=== PATIENT | female | born 1955 | race Caucasian/White ===

== ENCOUNTER 2020-09-20 08:32 | Day surgery (SDC) | payer MEDICARE ==
[~2020-09-20 08:32] MED LIST: DIPRIVAN 200 MG/20 ML IV ONE; Ketamine HCl 50 MG/ML ONE
[2020-09-20] MEDS ORDERED: BUPIVACAINE 0.5% VIAL IJ ONE (08:33)
[2020-09-20] MEDS ORDERED: Depo-Medrol 40 MG/ML IM ONE (08:33)
--- NOTE | 2020-09-20 10:55 | XRAY ---
Indication: Bilateral L3-S1 MBB. Intraoperative fluoroscopy was provided for 20 seconds. Single digital spot image submitted for interpretation demonstrates posterior needle tips projecting over the expected left and right L3-S1 nerve roots. Correlate with intraoperative findings/report. Incidental L3-S1 vertebroplasty.
--- NOTE | 2020-09-20 11:48 | XRAY ---
20 seconds fluoroscopy time in surgery for bilateral L3-S1 MBB.
[2020-09-20] MEDS ORDERED: Lactated Ringers 1,000 ML IV ONE (16:48)
== END 2020-09-20 10:25 | disposition home or self-care (01) ==
LOC: SDC 08:32 → SDC-PAIN 08:32
PROVIDERS: ATTEND Psychiatry & Neurology Pain Medicine
DX: M47.816 Spondylosis without myelopathy or radiculopathy, lumbar region (principal); J44.9 Chronic obstructive pulmonary disease, unspecified; I10 Essential (primary) hypertension; E78.5 Hyperlipidemia, unspecified; I25.10 Atherosclerotic heart disease of native coronary artery without angina pectoris; Z79.899 Other long term (current) drug therapy
CPT/HCPCS: 64493; 64494; 72020; 77002; J1030; J2704

== ENCOUNTER 2020-10-25 08:00 | Day surgery (SDC) | payer MEDICARE ==
[2020-10-25] MEDS ORDERED: Depo-Medrol 40 MG/ML IM ONE (08:01)
[2020-10-25] MEDS ORDERED: Xylocaine 1% Vial 30 ML PF IJ ONE ×2 (08:01)
[2020-10-25] MEDS ORDERED: Sensorcaine 0.25% 10 ML IJ ONE (08:01)
[2020-10-25] MEDS ORDERED: BUPIVACAINE 0.5% VIAL IJ ONE (08:01)
[2020-10-25] MEDS ORDERED: DIPRIVAN 200 MG/20 ML IV ONE ×2 (08:16→09:38)
[2020-10-25] MEDS ORDERED: Ketamine HCl 50 MG/ML ONE (08:18)
--- NOTE | 2020-10-25 10:36 | XRAY ---
Indication: Right L3-S1 RFA. Intraoperative fluoroscopy was provided for 1 minute 19 seconds. 3 digital spot images submitted for interpretation demonstrates posterior needle tips projecting over the expected right L3-S1 nerve roots. Correlate with intraoperative findings/report. Incidental L3-S1 vertebroplasty.
--- NOTE | 2020-10-25 10:38 | XRAY ---
1 minute and 19 seconds fluoroscopy time in surgery for right L3-S1 RFA.
[2020-10-25] MEDS ORDERED: Lactated Ringers 1,000 ML IV ONE (16:05)
== END 2020-10-25 10:02 | disposition home or self-care (01) ==
LOC: SDC-PAIN 08:00
PROVIDERS: ATTEND Psychiatry & Neurology Pain Medicine
DX: M47.816 Spondylosis without myelopathy or radiculopathy, lumbar region (principal); I10 Essential (primary) hypertension; J44.9 Chronic obstructive pulmonary disease, unspecified; E78.5 Hyperlipidemia, unspecified; Z86.79 Personal history of other diseases of the circulatory system; F41.9 Anxiety disorder, unspecified; Z79.899 Other long term (current) drug therapy
CPT/HCPCS: 64635; 64636; 72100; 77002; J1030; J2001; J2704

== ENCOUNTER 2020-11-01 07:47 | Day surgery (SDC) | payer MEDICARE ==
[2020-11-01] MEDS ORDERED: BUPIVACAINE 0.5% VIAL IJ ONE (07:48)
[2020-11-01] MEDS ORDERED: Xylocaine 1% Vial 30 ML PF IJ ONE (07:48)
[2020-11-01] MEDS ORDERED: Depo-Medrol 40 MG/ML IM ONE (07:48)
[2020-11-01] MEDS ORDERED: DIPRIVAN 200 MG/20 ML IV ONE (07:52)
[2020-11-01] MEDS ORDERED: Ketamine HCl 50 MG/ML ONE (07:52)
--- NOTE | 2020-11-01 10:54 | XRAY ---
51 seconds fluoroscopy time in surgery for left L3-S1 RFA.
--- NOTE | 2020-11-01 11:04 | XRAY ---
Indication: Left L3-S1 RFA. Intraoperative fluoroscopy was provided for 51 seconds. 4 digital spot images submitted for interpretation demonstrates posterior needle tips projecting over the expected left L3-S1 nerve roots. Correlate with intraoperative findings/report. Incidental L3-S1 vertebroplasty.
[2020-11-01] MEDS ORDERED: Lactated Ringers 1,000 ML IV ONE (15:28)
== END 2020-11-01 10:02 | disposition home or self-care (01) ==
LOC: SDC-PAIN 07:47
PROVIDERS: ATTEND Psychiatry & Neurology Pain Medicine
DX: M47.816 Spondylosis without myelopathy or radiculopathy, lumbar region (principal); Z79.899 Other long term (current) drug therapy; J44.9 Chronic obstructive pulmonary disease, unspecified; I10 Essential (primary) hypertension; E78.5 Hyperlipidemia, unspecified; I25.10 Atherosclerotic heart disease of native coronary artery without angina pectoris; F41.9 Anxiety disorder, unspecified
CPT/HCPCS: 64635; 64636; 72100; 77002; J1030; J2001; J2704

== ENCOUNTER 2020-12-20 09:34 | Day surgery (SDC) | payer MEDICARE ==
[2020-12-20] MEDS ORDERED: Decadron 4 MG INJ IV ONE (09:35)
[2020-12-20] MEDS ORDERED: Xylocaine 1% Vial 30 ML PF IJ ONE (09:35)
[2020-12-20] MEDS ORDERED: BUPIVACAINE 0.5% VIAL IJ ONE (09:35)
[2020-12-20] MEDS ORDERED: Depo-Medrol 40 MG/ML IM ONE (09:35)
[2020-12-20] MEDS ORDERED: Ketamine HCl 50 MG/ML ONE (11:15)
[2020-12-20] MEDS ORDERED: DIPRIVAN 200 MG/20 ML IV ONE (11:15)
--- NOTE | 2020-12-20 12:24 | XRAY ---
Indication: Right SI joint and piriformis injection. Intraoperative fluoroscopy was provided for 1 minute 8 seconds. 5 digital spot images submitted for interpretation demonstrates posterior needle tip projecting over the inferior right SI joint. Second needle tip projects over the expected right piriformis muscle with small amount of contrast injected for needle tip placement. Correlate with intraoperative findings/report. Incidental partially visualized L5 vertebroplasty.
--- NOTE | 2020-12-20 12:28 | XRAY ---
1 minute 8 second of fluoroscopy was used in surgery for a right SI joint and right piriformis injection.
[2020-12-20] MEDS ORDERED: Lactated Ringers 1,000 ML IV ONE (15:54)
== END 2020-12-20 11:47 | disposition home or self-care (01) ==
LOC: SDC-PAIN 09:34
PROVIDERS: ATTEND Psychiatry & Neurology Pain Medicine
DX: M46.1 Sacroiliitis, not elsewhere classified (principal); M79.18 Myalgia, other site; M60.9 Myositis, unspecified; I10 Essential (primary) hypertension; J44.9 Chronic obstructive pulmonary disease, unspecified; I25.10 Atherosclerotic heart disease of native coronary artery without angina pectoris; E78.5 Hyperlipidemia, unspecified; M81.0 Age-related osteoporosis without current pathological fracture; F41.9 Anxiety disorder, unspecified; Z79.899 Other long term (current) drug therapy
CPT/HCPCS: 20552; 27096; 72202; 77002; G0260; J1030; J1100; J2001; J2704; Q9966

== ENCOUNTER 2021-02-28 10:29 | Day surgery (SDC) | payer MEDICARE ==
[2021-02-28] MEDS ORDERED: Xylocaine 1% Vial 30 ML PF IJ ONE (10:30)
[2021-02-28] MEDS ORDERED: BUPIVACAINE 0.5% VIAL IJ ONE (10:30)
[2021-02-28] MEDS ORDERED: Decadron 4 MG INJ IV ONE (10:30)
[2021-02-28] MEDS ORDERED: Depo-Medrol 40 MG/ML IM ONE (10:30)
[2021-02-28] MEDS ORDERED: DIPRIVAN 200 MG/20 ML IV ONE (11:53)
[2021-02-28] MEDS ORDERED: Ketamine HCl 50 MG/ML ONE (11:53)
--- NOTE | 2021-02-28 12:41 | XRAY ---
Indication: Right SI joint and piriformis injection. Intraoperative fluoroscopy was provided for 25 seconds. 3 digital spot image submitted for interpretation demonstrates posterior needle tip projecting over the inferior right SI joint. Second needle tip projects over the expected right piriformis muscle with small amount of contrast injected for needle tip placement. Correlate with intraoperative findings/report. Incidental partially visualized L5 vertebroplasty.
--- NOTE | 2021-02-28 13:04 | XRAY ---
25 seconds fluoroscopy time in surgery for right SI joint and right piriformis muscle injections.
[2021-02-28] MEDS ORDERED: Lactated Ringers 1,000 ML IV ONE (13:52)
== END 2021-02-28 12:21 | disposition home or self-care (01) ==
LOC: SDC-PAIN 10:29
PROVIDERS: ATTEND Psychiatry & Neurology Pain Medicine
DX: M46.1 Sacroiliitis, not elsewhere classified (principal); M79.18 Myalgia, other site; I10 Essential (primary) hypertension; J44.9 Chronic obstructive pulmonary disease, unspecified; E78.5 Hyperlipidemia, unspecified; I25.10 Atherosclerotic heart disease of native coronary artery without angina pectoris; F41.8 Other specified anxiety disorders; Z79.899 Other long term (current) drug therapy
CPT/HCPCS: 20552; 27096; 72202; 77002; G0260; J1030; J1100; J2001; J2704; Q9966

== ENCOUNTER 2021-05-16 08:52 | Day surgery (SDC) | payer MEDICARE ==
[2021-05-16] MEDS ORDERED: Depo-Medrol 40 MG/ML IM ONE (08:53)
[2021-05-16] MEDS ORDERED: BUPIVACAINE 0.5% VIAL IJ ONE (08:53)
[2021-05-16] MEDS ORDERED: Xylocaine 1% Vial 30 ML PF IJ ONE (08:53)
[2021-05-16] MEDS ORDERED: DIPRIVAN 200 MG/20 ML IV ONE (10:13)
[2021-05-16] MEDS ORDERED: Lactated Ringers 1,000 ML IV ONE (16:27)
--- NOTE | 2021-05-17 11:33 | XRAY ---
55 seconds total fluoroscopy time in surgery for bilateral intra-articular and greater trochanteric injections.
== END 2021-05-16 11:15 | disposition home or self-care (01) ==
LOC: SDC-PAIN 08:52
PROVIDERS: ATTEND Psychiatry & Neurology Pain Medicine
DX: M16.0 Bilateral primary osteoarthritis of hip (principal); M70.62 Trochanteric bursitis, left hip; M70.61 Trochanteric bursitis, right hip; I25.10 Atherosclerotic heart disease of native coronary artery without angina pectoris; J44.9 Chronic obstructive pulmonary disease, unspecified; E78.5 Hyperlipidemia, unspecified; I10 Essential (primary) hypertension; F41.9 Anxiety disorder, unspecified; M81.0 Age-related osteoporosis without current pathological fracture; Z79.899 Other long term (current) drug therapy
CPT/HCPCS: 20610; 73522; 77002; J1030; J2001; J2704; Q9966

== ENCOUNTER 2021-07-18 10:20 | Day surgery (SDC) | payer MEDICARE ==
[2021-07-18] MEDS ORDERED: BUPIVACAINE 0.5% VIAL IJ ONE (10:21)
[2021-07-18] MEDS ORDERED: Decadron 4 MG INJ IV ONE (10:21)
[2021-07-18] MEDS ORDERED: Xylocaine 1% Vial 30 ML PF IJ ONE (10:21)
[2021-07-18] MEDS ORDERED: Depo-Medrol 40 MG/ML IM ONE (10:21)
[2021-07-18] MEDS ORDERED: DIPRIVAN 200 MG/20 ML IV ONE (11:35)
--- NOTE | 2021-07-18 12:09 | XRAY ---
29 seconds fluoroscopy time in surgery for injections of the left SI joint and left piriformis muscle.
--- NOTE | 2021-07-18 13:44 | XRAY ---
Indication: Left SI joint and piriformis muscle injections. Intraoperative fluoroscopy provided for 29 seconds. 3 digital spot image submitted for interpretation demonstrates posterior needle tip projecting over the inferior left SI joint. Second posterior needle tip projects over the expected left piriformis muscle with small amount of contrast injected for needle tip placement. Correlate with intraoperative findings/report.
[2021-07-18] MEDS ORDERED: Lactated Ringers 1,000 ML IV ONE (14:04)
== END 2021-07-18 12:05 | disposition home or self-care (01) ==
LOC: SDC-PAIN 10:20
PROVIDERS: ATTEND Psychiatry & Neurology Pain Medicine
DX: M46.1 Sacroiliitis, not elsewhere classified (principal); M79.18 Myalgia, other site; Z79.899 Other long term (current) drug therapy
CPT/HCPCS: 20552; 27096; 72202; 77002; G0260; J1030; J1100; J2001; J2704; Q9966

== ENCOUNTER 2021-08-01 10:01 | Day surgery (SDC) | payer MEDICARE ==
[2021-08-01] MEDS ORDERED: Depo-Medrol 40 MG/ML IM ONE (10:02)
[2021-08-01] MEDS ORDERED: BUPIVACAINE 0.5% VIAL IJ ONE (10:02)
[2021-08-01] MEDS ORDERED: Lactated Ringers 1,000 ML IV ONE (10:42)
[2021-08-01] MEDS ORDERED: DIPRIVAN 200 MG/20 ML IV ONE (10:46)
--- NOTE | 2021-08-01 12:24 | XRAY ---
Indication: Right hip and greater trochanter bursa injections. Intraoperative fluoroscopy provided for 25 seconds. 2 digital spot image submitted for interpretation demonstrates needle tip projecting lateral to the right femur neck. Second needle tip lateral to the greater trochanter. Small amount of contrast injected for both needle tip placement. Correlate with intraoperative findings/report.
--- NOTE | 2021-08-01 13:39 | XRAY ---
25 seconds of fluoroscopy was used in surgery for a right intra-articular and greater trochanteric bursa injection.
== END 2021-08-01 11:23 | disposition home or self-care (01) ==
LOC: SDC-PAIN 10:01
PROVIDERS: ATTEND Psychiatry & Neurology Pain Medicine
DX: M70.61 Trochanteric bursitis, right hip (principal); Z79.899 Other long term (current) drug therapy
CPT/HCPCS: 20610; 73502; 77002; J1030; J2704; Q9966

== ENCOUNTER 2021-09-12 08:11 | Day surgery (SDC) | payer MEDICARE ==
[2021-09-12] MEDS ORDERED: Depo-Medrol 40 MG/ML IM ONE (08:12)
[2021-09-12] MEDS ORDERED: Xylocaine 1% Vial 30 ML PF IJ ONE (08:12)
[2021-09-12] MEDS ORDERED: Decadron 4 MG INJ IV ONE (08:12)
[2021-09-12] MEDS ORDERED: Sodium Chloride 0.9(Preservative Free) 10 ML IJ ONE (08:12)
[2021-09-12] MEDS ORDERED: DIPRIVAN 200 MG/20 ML IV ONE (09:07)
[2021-09-12] MEDS ORDERED: TORAdol 30 mg Injection ONE (09:47)
--- NOTE | 2021-09-12 11:59 | XRAY ---
Indication: Lumbar LIS. Intraoperative fluoroscopy provided for 17 seconds. 2 digital spot image submitted for interpretation demonstrates posterior needle tip projecting just posterior to lumbosacral junction. Small amount of contrast injected for needle tip placement. Correlate with intraoperative findings/report. Incidental incompletely visualized L3-L5 vertebroplasty.
--- NOTE | 2021-09-12 11:59 | XRAY ---
Indication: Right piriformis injection. Intraoperative fluoroscopy provided for 27 seconds. Single digital spot image submitted for interpretation demonstrates posterior needle tip projecting over the expected right piriformis muscle. Small amount of contrast injected for needle tip placement. Correlate with intraoperative findings/report.
--- NOTE | 2021-09-12 12:10 | XRAY ---
17 seconds of fluoroscopy was used in surgery for a lumbar LIS.
--- NOTE | 2021-09-12 12:20 | XRAY ---
27 seconds of fluoroscopy was used in surgery for a right piriformis injection.
[2021-09-12] MEDS ORDERED: Lactated Ringers 1,000 ML IV ONE (16:25)
== END 2021-09-12 09:57 | disposition home or self-care (01) ==
LOC: SDC-PAIN 08:11
PROVIDERS: ATTEND Psychiatry & Neurology Pain Medicine
DX: M54.16 Radiculopathy, lumbar region (principal); M79.18 Myalgia, other site; Z79.899 Other long term (current) drug therapy
CPT/HCPCS: 20552; 62323; 72020; 72100; 77002; 77003; J1030; J1100; J1885; J2001; J2704; Q9966

== ENCOUNTER 2022-05-29 14:42 | Day surgery (SDC) | payer MEDICARE ==
[2022-05-29] MEDS ORDERED: Marcaine Mpf 0.5% Vial 30 Ml IJ ONE (14:43)
[2022-05-29] MEDS ORDERED: Depo-Medrol 40 MG/ML IM ONE (14:43)
[2022-05-29] MEDS ORDERED: DIPRIVAN 200 MG/20 ML IV ONE (16:49)
[2022-05-29] MEDS ORDERED: Lactated Ringers 1,000 ML IV ONE (17:53)
--- NOTE | 2022-05-29 19:55 | XRAY ---
Indication: Bilateral hip and bilateral greater trochanter bursa injections. Intraoperative fluoroscopy provided for 32 seconds. 4 digital spot image submitted for interpretation demonstrates needle tips projecting lateral to the left/right femur neck and left/right greater trochanter. Small amount of contrast injected for all needle tip placement. Correlate with intraoperative findings/report.
--- NOTE | 2022-05-30 09:20 | XRAY ---
32 seconds of fluoroscopy was used in surgery for bilateral hips intra-articular and greater trochanteric bursa injections.
== END 2022-05-29 17:20 | disposition home or self-care (01) ==
LOC: SDC-PAIN 14:42
PROVIDERS: ATTEND Psychiatry & Neurology Pain Medicine
DX: M16.0 Bilateral primary osteoarthritis of hip (principal); M70.62 Trochanteric bursitis, left hip; M70.61 Trochanteric bursitis, right hip; Z79.899 Other long term (current) drug therapy
CPT/HCPCS: 20610; 73522; 77002; J1030; J2704; Q9966

== ENCOUNTER 2023-06-25 11:10 | Day surgery (SDC) | payer MEDICARE ==
[2023-06-25] MEDS ORDERED: Depo-Medrol 40 MG/ML IM ONE (11:11)
[2023-06-25] MEDS ORDERED: BUPIVACAINE 0.5% VIAL IJ ONE (11:11)
[2023-06-25] MEDS ORDERED: DIPRIVAN 200 MG/20 ML IV ONE (13:12)
[2023-06-25] MEDS ORDERED: Versed 2 MG/2 ML Injection ONE (13:13)
--- NOTE | 2023-06-25 15:10 | XRAY ---
Indication: Bilateral SI joint injection. Intraoperative fluoroscopy provided for 15 seconds. 4 digital spot image submitted for interpretation demonstrates posterior needle tip projecting over the expected left and right SI joint. Correlate with intraoperative findings/report.
--- NOTE | 2023-06-25 15:16 | XRAY ---
15 seconds of fluoroscopy was used in surgery for a bilateral sacroiliac joint injection.
[2023-06-25] MEDS ORDERED: Lactated Ringers 1,000 ML IV ONE (16:48)
== END 2023-06-25 13:39 | disposition home or self-care (01) ==
LOC: SDC-PAIN 11:10
PROVIDERS: ATTEND Psychiatry & Neurology Pain Medicine
DX: M46.1 Sacroiliitis, not elsewhere classified (principal); Z79.899 Other long term (current) drug therapy
CPT/HCPCS: 27096; 72202; 77002; G0260; J1030; J2250; J2704

== ENCOUNTER 2024-07-01 09:21 | Day surgery (SDC) | payer MEDICARE ==
[2024-07-01] MEDS ORDERED: Sodium Chloride 0.9(Preservative Free) 10 ML IJ ONE (09:22)
[2024-07-01] MEDS ORDERED: Decadron 4 MG INJ IV ONE (09:22)
[2024-07-01] MEDS ORDERED: LIDOCAINE HCL 1% 50 MG/5 ML VL PF IJ ONE (09:22)
[2024-07-01] MEDS ORDERED: DIPRIVAN 200 MG/20 ML IV ONE (11:04)
[2024-07-01] MEDS ORDERED: Lactated Ringers 1,000 ML IV ONE (11:38)
[2024-07-01] MEDS ORDERED: MORPHINE SULFATE 2 MG INJ ONE (11:46)
--- NOTE | 2024-07-01 12:13 | XRAY ---
Indication: Left L4-S1 transforaminal LIS. Intraoperative fluoroscopy provided for 35 seconds. 5 digital spot image submitted for interpretation demonstrates posterior needle tips projecting over the expected left L4 and L5 nerve roots. Small amount of contrast injected for needle tip placement. Correlate with intraoperative findings/report. Incidental L3-L5 vertebroplasty.
--- NOTE | 2024-07-01 12:13 | XRAY ---
Indication: Left piriformis injection. Intraoperative fluoroscopy provided for 13 seconds. 4 digital spot image submitted for interpretation demonstrates posterior needle tips projecting over the expected left piriformis. Small amount of contrast injected for needle tip placement. Correlate with intraoperative findings/report.
--- NOTE | 2024-07-01 12:59 | XRAY ---
13 seconds of fluoroscopy was used in surgery for a left piriformis injection.
--- NOTE | 2024-07-01 12:59 | XRAY ---
35 seconds of fluoroscopy was used in surgery for a left L4-S1 transforaminal LIS.
== END 2024-07-01 12:30 | disposition home or self-care (01) ==
LOC: SDC-PAIN 09:21
PROVIDERS: ATTEND Psychiatry & Neurology Pain Medicine
DX: M54.16 Radiculopathy, lumbar region (principal); M79.18 Myalgia, other site
CPT/HCPCS: 20552; 64483; 64484; 72100; 72170; 77002; 77003; 99100; J1100; J2001; J2270; J2704; Q9966

== ENCOUNTER 2025-01-05 10:41 | Day surgery (SDC) | payer MEDICARE ==
[2025-01-05] MEDS ORDERED: Depo-Medrol 40 MG/ML IM ONE (10:42)
[2025-01-05] MEDS ORDERED: BUPIVACAINE 0.5% VIAL IJ ONE (10:42)
[2025-01-05] MEDS ORDERED: LIDOCAINE HCL 1% AMPUL 5 ML IJ ONE (10:42)
[2025-01-05] MEDS ORDERED: Versed 2 MG/2 ML Injection ONE ×2 (12:07→12:52)
--- NOTE | 2025-01-05 14:06 | XRAY ---
Indication: Bilateral SI joint injection. Intraoperative fluoroscopy provided for 12 seconds. 4 digital spot image submitted for interpretation demonstrates posterior needle tips projection over left and right SI joints. Correlate with intraoperative findings/report. Incidental right iliac stent graft and L5 vertebroplasty.
--- NOTE | 2025-01-05 14:58 | XRAY ---
12 seconds of fluoroscopy was used in surgery for a bilateral sacroiliac joint injection.
== END 2025-01-05 13:33 | disposition home or self-care (01) ==
LOC: SDC-PAIN 10:41
PROVIDERS: ATTEND Psychiatry & Neurology Pain Medicine
DX: M46.1 Sacroiliitis, not elsewhere classified (principal)
CPT/HCPCS: 27096; 72202; 77002; J2250